=== PATIENT | female | born 1950 | race Caucasian/White ===

== ENCOUNTER 2024-06-15 09:33 | Day surgery (SDC) | payer OTHER ==
[~2024-06-15] VITALS: Ht 165.1 cm; Wt 72.7 kg
[2024-06-15] VITALS (16 sets, daily range): BP systolic 82–139; BP diastolic 37–82
[~2024-06-15 09:33] MED LIST: ACTONEL PO; ASPI81CH; Boniva150 MG PO; Boniva3 MG/3 ML PO; Caltrate-600 W1 EACH PO; HYDCHL25 PO; IBAN2.5 PO; IBUP400 PO; KETO15TC TOP; LAMO100 PO; MULVITMIND PO; NS 500 ML IV SCH; Norco 5-325 Ta1 EACH PO; OLME20 PO; OXYACE5T PO; PHENY100ER PO; PHENYTOIN EX PO; PRAV20 PO; TIZA4 PO; Zanaflex2 M1 PO
--- NOTE | 2024-06-15 10:35 | NUR ---
Ambulatory in Day Surgery. History, Chart, Medications and Allergies reviewed before start of procedure. Lungs clear T/O to Auscultation. Patient confirms NPO status and agrees with scheduled surgery. Pre-Op teaching done. Pt verbalizes understanding. Patient States Post-Procedure ride home has been arranged.
[2024-06-15] MEDS ORDERED: NS 500 ML IV SCH (10:40)
[2024-06-15] MEDS ORDERED: propofoL 20 ML IV ONE (10:56)
--- NOTE | 2024-06-15 11:03 | NUR ---
06/15/24 1103 Rsoario Mantilla CONFIRMED AND REVIEWED H&P, MEDCICATIONS, ALLERGIES, MEDICAL HISTORY, RESPIRATORY HISTORY, VITAL SIGNS, 3-LEAD EKG, CONSENTS, AND PHYSICIAN ORDERS. PATIENT CONFIRMS NPO STATUS AND AGREES WITH SCHEDULED PROCEDURE. MONITOR INTACT WITH CONTINUOUS PULSE OXIMETRY, CAPNOGRAPHY, 3-LEAD EKG, INTERMITTENT BP. SUPPLEMENTAL O2 TO BE TITRATED THROUGHOUT PROCEDURE TO MAINTAIN O2 SATURATION ABOVE 90%. PATIENT DETERMINED TO BE ASA APPROPRIATE FOR PROPOFOL SEDATION PRIOR TO START OF PROCEDURE BY .MALLAMPATI CLASS 2 AIRWAY: COMPLETE VISUALIZATION OF THE UVULA.
== END 2024-06-15 12:10 | disposition home or self-care (01) ==
LOC: ORSCMMR 09:33 → ORD 10:30 → ORSCMMR 10:30
PROVIDERS: Internal Medicine Gastroenterology
PROC: 0DBN8ZX Excision of Sigmoid Colon, Via Natural or Artificial Opening Endoscopic, Diagnostic (ICD-10-PCS; principal; 2024-06-15 10:30)
PROC: 0DBM8ZX Excision of Descending Colon, Via Natural or Artificial Opening Endoscopic, Diagnostic (ICD-10-PCS; principal; 2024-06-15 10:30)
PROC: 0DBL8ZX Excision of Transverse Colon, Via Natural or Artificial Opening Endoscopic, Diagnostic (ICD-10-PCS; principal; 2024-06-15 10:30)
DX: Z12.11 Encounter for screening for malignant neoplasm of colon (principal); R19.5 Other fecal abnormalities; D12.3 Benign neoplasm of transverse colon; D12.4 Benign neoplasm of descending colon; K63.5 Polyp of colon; G80.9 Cerebral palsy, unspecified; G40.909 Epilepsy, unspecified, not intractable, without status epilepticus; I10 Essential (primary) hypertension; E78.00 Pure hypercholesterolemia, unspecified; Z79.899 Other long term (current) drug therapy
CPT/HCPCS: 88305; J2704; J7040

== ENCOUNTER 2024-10-19 08:26 | Day surgery (SDC) | payer OTHER ==
[~2024-10-19] VITALS: Ht 172.7 cm; Wt 73.0 kg
[~2024-10-19 08:26] MED LIST changes: +Aspir 8181 MG PO; +Balanced Salt Epinephrine Irrigation Solution 500 mL IR SCH; +Diazepam 5 MG Tab PO PRN; +Diazepam 5 MG Tab PO SCH; +LAMOTRIGINE100 M1 PO; +LUTEIN6 MG; +Lidocaine HCl/Pf 1% 5 ML VIAL XX SCH; +Moxifloxacin HCL 0.5 MG/0.1 ML 0.4MLSYR LEFTEYE SCH; +Moxifloxacin HCL 0.5 MG/0.1 ML 0.4MLSYR RIGHTEYE SCH; -NS 500 ML IV SCH; +Ondansetron 4 MG SoluTab MM PRN; +PHENYLEPHRINE\\TROPICAMIDE\\TETRACAINE OPHTHALMIC DILATING SOLN RIGHTEYE PRN; +PHENYTOIN SODI100 MG PO; +Povidone-Iodine 450 DROP/30 ML Solution ONE; +Povidone-Iodine 450 DROP/30 ML Solution RIGHTEYE SCH; +Tetracaine HCl/Pf 0.5% Opth Soln 4 ml ONE; +Triamcinolone Inj Susp 40 MG / ML 1ML Vial INJ SCH; +Triamcinolone Inj Susp 40 MG / ML 1ML Vial ONE
[2024-10-19] MEDS ORDERED: Diazepam 10 MG Tab ONE (09:04)
[2024-10-19] MEDS ORDERED: Ondansetron HCl 2 MG / ML 2ML Vial ONE (09:55)
[2024-10-19] MEDS ORDERED: propofoL 20 ML IV ONE (09:55)
[2024-10-19] MEDS ORDERED: Lidocaine HCl/Pf 1% 5 ML VIAL ONE (10:00)
[2024-10-19 10:13] VITALS: BP 128/68
--- NOTE | 2024-10-19 10:34 | NUR ---
10/19/24 1034 Tg Longoria D/C INSTRUCTIONS GIVEN TO PT, UNDERSTANDING VERBALIZED. PT HAS ALL BELONGINGS W/ HER, INCLUDING EYE KIT & D/C PACKET. PT INSTRUCTED TO BE EXTRA CAUTIOUS TODAY D/T PROPOFOL GIVEN IN OR & PT WILL BE EXTRA UNSTEADY TODAY, PT VERBALIZED UNDERSTANDING & INFORMED OF THIS. PT WHEELED TO PRIVATE VEHICLE. NO VISIBLE SIGNS OF DISTRESS NOTED.
== END 2024-10-19 10:30 | disposition home or self-care (01) ==
LOC: ORSCSDS 08:26
PROVIDERS: Ophthalmology
PROC: 08RJ3JZ Replacement of Right Lens with Synthetic Substitute, Percutaneous Approach (ICD-10-PCS; principal; 2024-10-19 10:00)
DX: H25.811 Combined forms of age-related cataract, right eye (principal); Z96.1 Presence of intraocular lens; R56.9 Unspecified convulsions; I10 Essential (primary) hypertension; M19.90 Unspecified osteoarthritis, unspecified site; Z79.82 Long term (current) use of aspirin; Z79.899 Other long term (current) drug therapy
CPT/HCPCS: A9270; J2003; J2405; J2704; J3301; V2632